=== PATIENT | female | born 1965 | race Caucasian/White ===

== ENCOUNTER 2021-11-02 16:44 | Emergency (ER) | payer MEDICAID ==
[~2021-11-02] VITALS: Ht 149.9 cm; Wt 53.1 kg
[2021-11-02 16:49] VITALS: BP 159/89
--- NOTE | 2021-11-02 16:50 | NUR ---
PT AMBULATED TO BED 2
--- NOTE | 2021-11-02 17:21 | NUR ---
56 Y/O FEMALE BIB SELF C/O DIZZINESS AND WEAKNESS X1 DAY. PT STATES SHE HAD DM TYPE II CONTROLLED WITH DIET AND SINCE APPROX. 07/22 SHE HAS BEEN FEELING THAT HER DIET HAS NOT BEEN CONTROLLING HER DM. PT STATES SHE TOOK A BLOOD SUGAR TODAY AND IT WAS "VERY HIGH". PT STATES SHE TOOK METFORMIN PROVIDED BY A FRIEND TODAY. PT STATES SHE HAS BEEN FEELING DISORIENTED AND WEAK. PT DENIES SOB, CHEST PAIN, FEVER, CHILLS. PMH:DIABETES MEDS:DENIES NKA
[2021-11-02] MEDS ORDERED: NACL 0.9% 2,000 ML IV ONE (17:35)
--- NOTE | 2021-11-02 17:54 | NUR ---
COLLECTED BLOODWORK WALKED TO LAB
--- NOTE | 2021-11-02 17:55 | NUR ---
PT PROVIDED WITH WARM BLANKET
[2021-11-02 18:03] LABS: BASOPHILS # (AUTO) 0.1 K/uL (0.00-0.22); BASOPHILS % (AUTO) 1.3 % (0.0-2.0); EOSINOPHILS # (AUTO) 0.1 K/uL (0-0.4); EOSINOPHILS % (AUTO) 2.1 % (0.0-4.0); HEMOGLOBIN 12.9 g/dL (12.0-16.0); LYMPHOCYTES # (AUTO) 1.8 K/uL (2.5-16.5); LYMPHOCYTES % (AUTO) 37.3 % (20.5-51.1); MEAN CORPUSCULAR HEMOGLOBIN 30 pg (27-31); MEAN CORPUSCULAR HGB CONC 34 g/dL (33-37); MEAN CORPUSCULAR VOLUME 87.1 fL (80-94); MONOCYTES # (AUTO) 0.3 K/uL (0.8-1.0); NEUTROPHILS # (AUTO) 2.6 K/uL (1.8-7.7); NEUTROPHILS % (AUTO) 53.3 % (42.2-75.2); PLATELET COUNT (AUTO) 241 K/uL (140-450); RED BLOOD CELL COUNT(AUTO) 4.37 MIL/uL (4.20-5.40); RED CELL DISTRIBUTION WIDTH 12.9 % (11.6-13.7); WHITE BLOOD COUNT (AUTO) 4.9 K/uL (4.8-10.8)
[2021-11-02] MEDS ORDERED: METF-1243 PO (18:18)
[2021-11-02 18:36] LABS: ALBUMIN 3.5 g/dL (3.4-5.0); ANION GAP 13.1 (8-16); ASPARTATE AMINOTRANSFERASE 31 U/L (15-37); CARBON DIOXIDE 27.8 mmol/L (21-32); CHLORIDE 99 mmol/L (98-107); CREATININE 0.6 mg/dL (0.6-1.3); GFR ARICAN-AMERICAN 133 mL/min (>90); POTASSIUM 4.9 mmol/L (3.5-5.1); SODIUM SERUM 135 mmol/L (136-145); TOTAL BILIRUBIN 0.5 mg/dL (0.0-1.0); UREA NITROGEN, BLOOD 14 mg/dL (7-18)
[2021-11-02 18:39] LABS: GLUCOSE 446 mg/dL (74-106)
[2021-11-02] MEDS ORDERED: INSULIN REGULAR, HUMAN 100 UNIT/ML VIAL SUBQ ONE (18:50)
[2021-11-02 18:57] LABS: APPEARANCE,URINE CLEAR (CLEAR); BILIRUBIN,URINE NEGATIVE (NEGATIVE); BLOOD, URINE TRACE-I (NEGATIVE); COLOR,URINE YELLOW (YELLOW); LEUKOCYTE ESTERASE ,URINE NEGATIVE (NEGATIVE); NITRITE, URINE NEGATIVE (NEGATIVE); UGLUCOSE 3+ (NEGATIVE)
[2021-11-02 19:07] LABS: RBC,URINE NONE SEEN /HPF (0-5); WBC,URINE NONE SEEN /HPF (0-5)
--- NOTE | 2021-11-02 19:16 | NUR ---
Pt report given to [facility]. Transfer of care at this time.
--- NOTE | 2021-11-02 20:50 | NUR ---
Patient discharged with v/s stable. Written and verbal after care instructions given and explained. Patient alert, oriented and verbalized understanding of instructions. Ambulatory with steady gait. All questions addressed prior to discharge. ID band removed. Patient advised to follow up with PMD. Rx of METFORMIN HCI given. Patient educated on indication of medication including possible reaction and side effects. Opportunity to ask questions provided and answered.
--- NOTE | 2021-11-02 20:50 | NUR ---
The patient's care was reviewed and supervised by Greta Florez RN.
== END 2021-11-02 20:50 | disposition home or self-care (01) ==
LOC: MED 16:44
DX: R73.9 Hyperglycemia, unspecified (principal)
CPT/HCPCS: 36415; 80053; 81001; 84484; 85025; 93005; 96360; 96361; 96372; 99284; J1815; J7030; 81002